=== PATIENT | female | born 1995 | race American Indian/Alaskan Native ===

== ENCOUNTER 2022-07-12 19:38 | Emergency (ER) | payer OTHER ==
[~2022-07-12] VITALS: Ht 165.1 cm; Wt 59.0 kg
== END 2022-07-13 02:44 | disposition home or self-care (01) ==
LOC: ER 19:38
DX: S93.401A Sprain of unspecified ligament of right ankle, initial encounter (principal); W19.XXXA Unspecified fall, initial encounter; Y93.89 Activity, other specified; Y92.89 Other specified places as the place of occurrence of the external cause; Y99.9 Unspecified external cause status